=== PATIENT | male | born 1930 | race Two or more races ===

== ENCOUNTER → 2019-10-02 | Outpatient (CLI) | payer MEDICARE ==
[~2019-10-02] MED LIST: REGADENOSON 0.4 MG/5 ML DISP.SYRIN. IV ONE
--- NOTE | 2019-10-02 13:49 | PCVCIMAG ---
APPROVED REPORT Study performed: 10/02/2019 12:54:23 EXAM: Comprehensive 2D, Doppler, and color-flow Echocardiogram Patient Location: Echo lab Status: routine BSA: 1.85 HR: 68 bpmBP: 152/82 mmHg Rhythm: NSR Other Information Study Quality: Adequate Risk Factors: Cardiac Risk Factors: HTN Indications Chest Pain 2D Dimensions IVSd: 13.35 (7-11mm) LVDd: 45.35 mm PWd: 10.74 (7-11mm)Ascending Ao: 32.40 (22-36mm) LVDs: 29.09 (25-40mm) Left Atrium: 43.01 (27-40mm) Aortic Root: 26.49 mm LV Single Plane 4CH: 62.84 % LV Single Plane 2CH: 65.54 % Biplane EF: 66.0 % Volumes Left Atrial Volume (Systole) Single Plane 4CH: 61.68 mLSingle Plane 2CH: 59.54 mL LA ESV Index: 33.00 mL/m2 Aortic Valve AoV Peak Juno.: 2.14 m/s AO Peak Gr.: 18.39 mmHgLVOT Max P.96 mmHg LVOT Max V: 1.32 m/s AI Vmax: 4.26 m/s AI Sutter: 2.83 m/s2 AI PHT: 435.41 ms Mitral Valve E/A Ratio: 0.5 MV Decel. Time: 304.87 ms MV E Max Juno.: 0.67 m/s MV A Juno.: 1.29 m/s IVRT: 121.11 ms Pulmonary Valve PV Peak Juno.: 1.32 m/sPV Peak Gr.: 7.02 mmHg Pulmonary Vein P Vein S: 0.33 m/sP Vein A: 0.38 m/s P Vein D: 0.38 m/sP Vein A Dur.: 173.0 msec P Vein S/D Ratio: 0.87 Tricuspid Valve TR Peak Juno.: 3.19 m/s TR Peak Gr.: 40.81 mmHg Left Ventricle The left ventricle is normal size. There is normal LV segmental wall motion. Mild concentric left ventricular hypertrophy. Left ventricular systolic function is normal. The left ventricular ejection fraction is within the normal range. LVEF is 60-65%. Grade I - abnormal relaxation pattern. Right Ventricle The right ventricle is normal size. The right ventricular systolic function is normal. Atria Left atrium is mildly dilated. The right atrium size is normal. Aortic Valve The aortic valve is normal in structure. Mild to moderate aortic regurgitation. There is no aortic valvular stenosis. Mitral Valve The mitral valve is normal in structure. Mild mitral regurgitation. No evidence of mitral valve stenosis. Tricuspid Valve The tricuspid valve is normal in structure. Moderate tricuspid regurgitation with PAP of 48 mmHg. Pulmonic Valve The pulmonary valve is normal in structure. Trace pulmonic regurgitation. Great Vessels The aortic root is normal in size. IVC is normal in size and collapses >50% with inspiration. Pericardium There is no pericardial effusion. There is no pleural effusion. <Conclusion> The left ventricle is normal size. LVEF is 60-65%. Left atrium is mildly dilated. The aortic valve is normal in structure. Mild to moderate aortic regurgitation. The mitral valve is normal in structure. Mild mitral regurgitation. The tricuspid valve is normal in structure. Moderate tricuspid regurgitation with PAP of 48 mmHg. The pulmonary valve is normal in structure. Trace pulmonic regurgitation. There is no pericardial effusion.
--- NOTE | 2019-10-04 09:56 | PCVCIMAG ---
APPROVED REPORT Imaging Protocol: Rest Tc-99m/Stress Tc-99m 1 day Study performed: 10/02/2019 14:07:26 Indication: Chest pain, Dyspnea Patient Location: Out-Patient Stress Nurse: Jackie Delgado RN PA Tech:Yanely NurSHON garnerMT Ht: 5 ft 7 in Wt: 162 lbs BSA: 1.85 m2 HR: 66 bpm BP: 200/86 mmHg BMI: 25.36 Rhythm: Sinus Rhythm, Incomplete RBBB Medical History Medical History: HTN, Former Smoker Medications: Irbesartan, Metoprolol, Pravachol Allergies: No known drug allergies Cardiac Risk Factors: Age Pretest Chest Pain Characteristics: No chest pain Meds Held (24 hrs): Metoprolol Resting Data Rest SPECT myocardial perfusion imaging was performed in supine position 45 minutes following the intravenous injection of 10.8 mCi of Tc-99m Sestamibi. Time of rest injection: 1330 Date: 10/02/2019 Administration Route: IV Administration Site: Right AC Pharmacologic Stress Pharmacologic stress test was performed by injecting Regadenoson 0.4 mg IV push over 10-15 seconds immediately followed by the intravenous injection of 33.4 mCi of Tc-99m Sestamibi. Time of stress injection: 1445 Date: 10/02/2019 Administration Route: IV Administration Site: Right AC Gated Stress SPECT was performed 45 minutes after stress injection. The images were gated to evaluate regional wall motion and calculate left ventricular ejection fraction. Stress Test Details Stress Test: Pharmacologic stress testing performed using 0.4 mg of regadenoson per 5 mL given IV over 10 seconds. Reason for pharmacologic stress test: physical limitation, spinal stenosis. HRMax Heart Rate (APMHR): 131 bpm Resting HR: 66 bpmTarget HR (85% APMHR): 111 bpm Max HR Achieved: 90 bpm % of APMHR: 68 Recovery HR: 83 bpm BP Resting BP: 200/86 mmHg Max BP: 191/86 mmHg Recovery BP: 160/77 mmHg ECG Resting ECG: Sinus Rhythm, Incomplete RBBB Stress ECG: Sinus Rhythm, Incomplete RBBB Arrhythmia: None Recovery ECG: Sinus Rhythm, Incomplete RBBB Clinical Reason for Termination: Completed protocol Stress Symptoms: Abdominal discomfort Symptoms resolved during recovery. Stress ECG Conclusion 1. Adequate response intravenous Lexiscan 2. Inadequate heart rate for ECG diagnosis Study Data Post stress, the left ventricular ejection was 78%.. SSS: 1 SRS: 2 SDS: 0 TID = 0.86. Perfusion There is a small area of mildly reduced uptake in the basal segment of the inferior wall which is seen on the stress images as well as the resting images. This area thickens and moves normally and is most consistent with attenuation artifact. Wall Motion Normal left ventricular wall motion. Nuclear Conclusion ECG Findings: non-diagnostic Clinical Findings: negative for ischemia Nuclear Findings: negative for ischemia Exercise Capacity: not assessed Left Ventricular Function: normal 1. Low risk study based on absence of inducible ischemia 2. Post stress left ventricular ejection fraction MG percent with normal contractility <Conclusion> 1. Adequate response intravenous Lexiscan 2. Inadequate heart rate for ECG diagnosis
== END | disposition home or self-care (01) ==
LOC: PCVCIMAG 13:13
PROVIDERS: ATTEND Internal Medicine
DX: I08.3 Combined rheumatic disorders of mitral, aortic and tricuspid valves (principal); I10 Essential (primary) hypertension; E78.5 Hyperlipidemia, unspecified; M10.9 Gout, unspecified; Z87.891 Personal history of nicotine dependence
CPT/HCPCS: 78452; 93017; 93306; A9500; J2785